=== PATIENT | female | born 1995 | race Two or more races ===

== ENCOUNTER 2020-02-13 11:59 | Emergency (ER) | payer MEDICAID ==
[~2020-02-13] VITALS: Ht 154.9 cm; Wt 84.1 kg
[2020-02-13 12:10] VITALS: BP 107/77
[2020-02-13] MEDS ORDERED: CYCLOBENZAPRINE HCL 10 MG TABLET PO ONE (12:45)
[2020-02-13] MEDS ORDERED: IBUPROFEN 800 MG TABLET PO ONE (12:45)
== END 2020-02-13 13:53 | disposition home or self-care (01) ==
LOC: EMS 12:13
DX: S46.811A Strain of other muscles, fascia and tendons at shoulder and upper arm level, right arm, initial encounter (principal); V49.9XXA Car occupant (driver) (passenger) injured in unspecified traffic accident, initial encounter; Y93.55 Activity, bike riding; Y92.488 Other paved roadways as the place of occurrence of the external cause; Y99.8 Other external cause status